=== PATIENT | male | born 1955 | race Caucasian/White ===

== ENCOUNTER 2024-04-11 06:15 | Day surgery (SDC) | payer OTHER ==
[~2024-04-11] VITALS: Ht 177.8 cm; Wt 78.2 kg
[2024-04-11] MEDS ORDERED: Lactated Ringer's 1,000 ML IV ONE ×2 (06:16→06:36)
[2024-04-11] MEDS ORDERED: Sodium Bicarb 8.4% 1 MEQ/ML 50 ML Vial ONE (06:16)
[2024-04-11] MEDS ORDERED: Lidocaine 1%-Epineph 1:100000 20 ML MDV ONE ×2 (06:19→07:59)
--- NOTE | 2024-04-11 07:26 | NUR ---
04/11/24 0726 Nydia Faulkner TIME OUT PERFORMED AT BEDSIDE WITH DR SALEH AT [address] SALEH INJECTING 9ML 1% LIDOCAINE WITH EPI [id number] AND 1 ML 8.4% SODIUM BICARBONATE.
[2024-04-11] MEDS ORDERED: Midazolam HCl 1MG / ML 2ML Vial ONE (07:27)
[2024-04-11] MEDS ORDERED: FentaNYL Citrate 50 MCG/ML 2 ML Injection ONE (07:27)
[2024-04-11] MEDS ORDERED: propofoL 20 ML IV ONE (07:27)
--- NOTE | 2024-04-11 07:36 | NUR ---
04/11/24 0736 Josephine Elizabeth PT HAS A SCRATCH TO LEFT SMALL FINGER, SURGEON AWARE, OK TO PROCEED WITH PROCEDURE
[2024-04-11 08:27] VITALS: BP 106/69
== END 2024-04-11 08:15 | disposition home or self-care (01) ==
LOC: ORSCSDS 06:15
PROVIDERS: Orthopaedic Surgery
PROC: 01N54ZZ Release Median Nerve, Percutaneous Endoscopic Approach (ICD-10-PCS; principal; 2024-04-11 07:30)
DX: G56.03 Carpal tunnel syndrome, bilateral upper limbs (principal)
CPT/HCPCS: J2250; J2704; J3010; J7120

== ENCOUNTER 2024-05-26 08:05 | Day surgery (SDC) | payer OTHER ==
[~2024-05-26] VITALS: Ht 177.8 cm; Wt 80.5 kg
[~2024-05-26 08:05] MED LIST: Lactated Ringer's 1,000 ML IV ONE
[2024-05-26] MEDS ORDERED: Lactated Ringer's 1,000 ML IV ONE (09:02)
--- NOTE | 2024-05-26 09:13 | NUR ---
05/26/24 0913 Osman Manning, TIME OUT 09 W/ DR SALEH LOCAL INJECTION AT 0906 WITH 9CC LIDOCAINE AND 1CC SODIUM BICARBONATE
[2024-05-26 09:47] VITALS: BP 139/77
== END 2024-05-26 10:23 | disposition home or self-care (01) ==
LOC: ORSCSDS 08:05
PROVIDERS: Orthopaedic Surgery
PROC: 01N54ZZ Release Median Nerve, Percutaneous Endoscopic Approach (ICD-10-PCS; principal; 2024-05-26 09:30)
DX: G56.01 Carpal tunnel syndrome, right upper limb (principal)
CPT/HCPCS: J7120